=== PATIENT | female | born 1960 | race Caucasian/White ===

== ENCOUNTER 2020-06-04 16:33 | Emergency (ER) | payer SELFPAY ==
[2020-06-04] MEDS ORDERED: ONDANSETRON 4 MG (ODT) TAB ONE (17:07)
--- NOTE | 2020-06-04 18:06 | ER ---
Nurse's Notes [facility] Name: Cristina Galvan Age: 60 yrs Sex: Female : 1960 Arrival Date: 06/04/2020 Time: 16:37 Bed Waiting Private MD: Diagnosis: Presentation: 06/04 16:43 Chief complaint: Patient states: Upper abd pain since 0730 with N/V. No fever. ll1 Coronavirus screen: Client denies travel out of the [place] in the last 14 days. At this time, the client does not indicate any symptoms associated with coronavirus-19. Ebola Screen: Patient denies travel to an Ebola-affected area in the 21 days before illness onset. Initial Sepsis Screen: Does the patient meet any 2 criteria? No. Patient's initial sepsis screen is negative. Does the patient have a suspected source of infection? Yes: Acute abdominal pain. Risk Assessment: Do you want to hurt yourself or someone else? Patient reports no desire to harm self or others. Onset of symptoms was June 04, 2020. 16:43 Method Of Arrival: Ambulatory [facility] 16:43 Acuity: ALHAJI 3 1 Triage Assessment: 16:54 General: Appears uncomfortable, ill, Behavior is calm, cooperative, appropriate for [facility] age. Pain: Complains of pain in abdomen Quality of pain is described as aching, sharp, Pain began 0730 am Aggravated by n/v. Neuro: No deficits noted. Cardiovascular: No deficits noted. Respiratory: No deficits noted. GI: Abdomen is flat, Bowel sounds present X 4 quads. Abd is soft Abdomen is tender to palpation in right lower quadrant and left lower quadrant Reports lower abdominal pain, upper abdominal pain, nausea, vomiting. : No deficits noted. Historical: - Allergies: 16:45 cat gut sutures; ll1 16:45 egg yolks; ll1 - PMHx: 16:45 hyperthyroid; low BP; ll1 - PSHx: 16:45 Hysterectomy; reconstructive sx for ; Skin Graft; ll1 - Immunization history:: Client reports receiving the 2nd dose of the Covid vaccine, Flu vaccine is up to date. - Social history:: Smoking status: Patient denies any tobacco usage or history of. Vital Signs: 16:43 BP 106 / 67; Pulse 70; Resp 16; Temp 98.3; Pulse Ox 99% ; Weight 73.48 kg; Height 5 ft. ll1 7 in. (170.18 cm); Pain 9/10; 16:43 Body Mass Index 25.37 (73.48 kg, 170.18 cm) ll1 ED Course: 16:37 Patient arrived in ED. mr 16:44 Triage completed. ll1 16:46 Arm band placed on. ll1 18:05 Patient's name was called from ER lobby. No response. Unable to locate patient. Will bb disposition as left without being seen by a provider. Administered Medications: 16:52 Drug: Zofran (Ondansetron) 4 mg Route: PO; ll1 Outcome: 18:05 Patient left the ED. bb Signatures: Joy Sood mr Idalia Holm, RN RN bb Alexys Agarwal RN RN 1
[2020-06-04 18:26] VITALS: BP 106/67; TEMP 98.3; O2SAT 99
== END 2020-06-04 18:05 | disposition left against medical advice (07) ==
LOC: ER 16:33
DX: Z53.21 Procedure and treatment not carried out due to patient leaving prior to being seen by health care provider (principal)
CPT/HCPCS: 99282